=== PATIENT | female | born 1950 | race African-American/Black ===

== ENCOUNTER 2016-03-10 10:28 | Emergency (ER) | payer OTHER ==
[2016-03-10 11:06] VITALS: TEMP 98.9; BMI 45.6
--- NOTE | 2016-03-10 12:08 | DIRPT ---
CLINICAL DATA: Cough, congestion, shortness of breath, chest pain for 3 weeks. EXAM: CHEST 2 VIEW COMPARISON: 05/12/2015 FINDINGS: Focal airspace opacity in the left lung base concerning for pneumonia. Right lung is clear. Heart is normal size. No effusions or acute bony abnormality. IMPRESSION: Left lower lobe opacity concerning for pneumonia. Electronically Signed By: Osiel Arreola M.D. On: 03/10/2016 12:05
--- NOTE | 2016-03-10 12:31 | EDPRACDOC ---
- General Information Chief Complaint: Dyspnea/Resp distress Stated Complaint: DIFFICULTY BREATHING Time Seen by Provider: 03/10/16 12:23 Information Source: Patient Home Medications: Home Medications Albuterol/Ipratropium Neb [Duoneb] 3 ml NEB Q6H #90 nebu 05/14/15 Alprazolam [Xanax] 0.5 mg PO Q6H PRN #30 tab 05/14/15 Guaifenesin [Mucinex] 1,200 mg PO BID #20 tbmp.12hr 05/14/15 Levalbuterol [Xopenex Hfa] 15 gm IH Q6 #2 inh 05/14/15 Levofloxacin [Levaquin] 750 mg PO DAILY #5 tablet 05/14/15 Omeprazole 40 mg PO DAILY #30 capsule.dr 05/14/15 Prednisone 10 mg PO DAILY #30 tab.ds.pk 05/14/15 Promethazine HCl [Phenergan] 12.5 mg PO Q6 #30 tablet 05/14/15 Guaifenesin-Codeine [Robitussin AC] 10 ml PO Q4-6H PRN #120 udc 03/10/16 Levofloxacin [Levaquin] 750 mg PO DAILY #7 tab 03/10/16 Ondansetron HCl [Zofran] 4 mg PO Q8H PRN #15 tab 03/10/16 Prednisone [Deltasone, Orasone] 20 mg PO DAILY #20 tab 03/10/16 Allergies/Adverse Reactions: Allergies Allergy/AdvReac Type Severity Reaction Status Date / Time No Known Allergies Allergy Verified 03/10/16 11:04 - History of Present Illness Onset: 3 weeks HPI: Pt c/o congestion, cough, sob, nausea, fever x 3 weeks. Denies earache, sore throat, cp, abd pain, changes in bowel or bladder, rash. pt states L rib pain with cough Current Symptoms: Reports: Cough, Fever, Nasal Symptoms, Nausea Shortness of Breath: Mild Cough: Reports: Non-productive Rhinorrhea: Reports: Clear Ear Symptoms: Reports: None Fever Severity/Quality: Reports: subjective Oral Intake: Normal Urinary Output: Normal Relevant History of: Asthma Associated Signs & Symptoms:: Reports: Cough, Fever, Nasal Symptoms, Nausea ED Past Medical History - History Reviewed Yes Nurses notes reviewed and agree except as marked - Patient Medical History Respiratory History: Reports: Asthma Psychological History: Denies: Depression - Family Medical History Reports: Hypertension (sister), Diabetes (sisters), Stroke (brother) - Social Medical History Smoking Status: Never smoker ETOH: None Substance Abuse: None EDM Review of Systems - Review of Systems Constitutional: Fever Ears: No Symptoms Reported. negative: Pain, Hearing Loss, Drainage, Ear Pulling Throat: No Symptoms Reported. negative: Pain, Swelling Nose: Congestion Mouth: No Symptoms Reported. negative: Pain, Drooling Respiratory: Cough, Shortness of Breath Cardiovascular: No Symptoms Reported. negative: Chest Pain, Palpitations, Syncope, Edema, Orthopnea, PND, Skin Mottling, Cyanosis Gastrointestinal: Nausea Genitourinary: No Symptoms Reported. negative: Dysuria, Hematuria, Frequency, Discharge, Bleeding, Testicular Pain, Neurological: No Symptoms Reported. negative: Headache, Dizziness, Seizure, Numbness, Weakness, Speech Difficulty, Gait Difficulty Musculoskeletal: Ribs Integumentary: No Symptoms Reported. negative: Itching, Rash, Bruising, Wound Allergic/Immunologic: No Symptoms Reported. negative: Hives, Itching Hematologic: No Symptoms Reported. negative: Lymphadenopathy, Easy Bruising, Easy Bleeding Psychiatric: No Symptoms Reported. negative: Anxiety, Depression, Hallucinations, Insomnia, Suicidal - Physical Exam Constitutional: Alert Oriented to: Time, Person, Place Last recorded Vital Signs: Last Vital Signs Temp 98.9 F 03/10/16 11:06 Pulse 95 03/10/16 11:06 Resp 20 03/10/16 11:06 BP 186/86 H 03/10/16 11:06 Pulse Ox 96 03/10/16 11:06 Oxygen Pulse Oxygen Saturation 96 O2 Device Room Air Oxygen Flow Rate Fraction of Inspired Oxygen ( FIO2) - HEENT Head: Normal ( normocephalic) Eye Exam: Normal (PERRL, EOMI, Sclera white) Oropharynx: Normal (Pharynx:Moist without exudate,Gums-no swelling) Tympanic Membrane: Normal ENT EAC: Normal Nose: Congestion Neck: Normal (FROM, trachea at midline) - Respiratory/Cardiovascular Respiratory: Rales (LLL) Cardiovascular: Normal (RRR without murmur, gallop or rub) - GI Auscultation: Normal (NABS) Palpation: Normal (Soft,No rebound or guarding, non distended) Tenderness: Non tender - Musculoskeletal Back: Normal (Non-Tender) Extremities: Normal (Normal tone, Pulses 2+ No cyanosis or edema, FROM) - Integumentary Skin: Normal, Warm, Dry Lymphatics: Normal (no adenopathy) - Neurologic Memory Impaired: Normal Motor Function: Normal (Normal tone, Pulses 2+ No cyanosis or edema, FROM) Mood Description: Normal Perception: Normal - Differential Diagnosis Bronchitis, Pneumonia, URI, Viral - Diagnostic Imaging Chest Image interpreted by: Radiologist IMPRESSION: Left lower lobe opacity concerning for pneumonia. Decision Time to Discharge: 12:31 - Departure Disposition: Home Condition: Good Final Diagnosis: LLL pneumonia Qualifiers: Pneumonia type: due to unspecified organism Qualified Code(s): J18.1 - Lobar pneumonia, unspecified organism Instructions: Community Acquired Pneumonia (ED) Education/Counseling Given To: Patient, Family Member Education/Counseling Given Regarding: Diagnosis, Treatment, Follow Up Referrals: None,No Provider [Primary Care Provider] - One Week Roger Nguyen II, MD [Staff Physician] - One Week Prescriptions: Guaifenesin-Codeine [Robitussin AC] 10 ml PO Q4-6H PRN #120 udc PRN Reason: Cough Levofloxacin [Levaquin] 750 mg PO DAILY #7 tab Ondansetron HCl [Zofran] 4 mg PO Q8H PRN #15 tab PRN Reason: Nausea/Vomiting Prednisone [Deltasone, Orasone] 20 mg PO DAILY #20 tab Additional Instructions: Albuterol MDI 1-2 puffs every 4-6 hours as needed for shortness of breath. Return for worse or different symptoms.
[2016-03-10] MEDS ORDERED: ALBUTEROL 6.7 GM MDI INH ONE (12:34)
[2016-03-10 12:55] VITALS: BP 146/76; PULSE 85
== END 2016-03-10 12:54 | disposition home or self-care (01) ==
LOC: ED 10:28 → EDMC 12:54
DX: J18.1 Lobar pneumonia, unspecified organism (principal)
CPT/HCPCS: 71020; 94640; 99283; J3490